=== PATIENT | male | born 1980 | race African-American/Black ===

== ENCOUNTER 2019-07-14 18:17 | Inpatient (IN) | payer OTHER ==
[2019-07-14 18:43] VITALS: BMI 24.0
--- NOTE | 2019-07-14 20:40 | HP ---
"CIWA Score - Admission Criteria [facility] Guidelines: Admission for Medically Managed Detox: Requires at least one of the followin. CIWA greater than 12 2. Seizures within the past 24 hours 3. Delirium tremens within the past 24 hours 4. Hallucinations within the past 24 hours 5. Acute intervention needed for co occurring medical disorder 6. Acute intervention needed for co occurring psychiatric disorder 7. Severe withdrawal that cannot be handled at a lower level of care (continued vomiting, continued diarrhea, abnormal vital signs) requiring intravenous medication and/or fluids 8. Admission ROS [facility] - HPI Chief Complaint: Here to get myself straight. Allergies/Adverse Reactions: Allergies Allergy/AdvReac Type Severity Reaction Status Date / Time lactose AdvReac Intermediate Verified 07/14/19 18:31 History of Present Illness: 39 yo presents w/ hx poly-substance use disorder. Released from incarceration after 3 days, and presents for admission to rehab. CASIMIRO: 0.0 Utox: + PHILLIP/THC States Court Mandated into treatment for cocaine, alcohol and methamphetamine. Alcohol use began at age 17. Currently drinking 12 beers - 12 oz/daily x 6 years. Last use 3 days ago. Cocaine use began at age 19. Currently $80 daily x 10 years. Last use 3 days ago. Methamphetamine use began at age 19. Current use daily since age 29's. Last use 3 days ago. Marijuana use began at age 15. Continues use since age 15. Last use 3 days ago. Nicotine use since age 10. Currently smokes 1 PPD. Denies hx seizures, blackouts, overdoses. PMHx: HTN - does not take meds; MHHx: Depression. Some anxiety. Denies other MH issues. Denies thoughts of harming self or others. SHx: Homeless. Unemployed. Mandated into treatment. Search Terms: [place], 1980 Search Date: 07/14/2019 08:33:24 PM The Drug Utilization Report below displays all of the controlled substance prescriptions, if any, that your patient has filled in the last twelve months. The information displayed on this report is compiled from pharmacy submissions to the Department, and accurately reflects the information as submitted by the pharmacies. This report was requested by: Fernanda Cochran | Reference #: [id number] There are no results for the search terms that you entered. Search Terms: [place], 1980 Search Date: 07/14/2019 08:33:56 PM States Searched: [place], [place], [place], [place], [place], [place], [place], [place] The Drug Utilization Report below displays the controlled substance prescriptions, if any, that were dispensed in the indicated state(s). The information displayed on this report is compiled from requests submitted to other states' PMPs, and accurately reflects the information as returned by them. Blank wheeler indicate data not provided by other state. This report was requested by: Fernanda Cochran | Reference #: [id number] There are no results for the search terms that you entered. Exam Limitations: No Limitations - Ebola screening Have you traveled outside of the country in the last 21 days: No (N) Have you had contact with anyone from an Ebola affected area: No Have you been sick,other than usual withdrawal symptoms: No Do you have a fever: No - Review of Systems Constitutional: Chills EENT: reports: Nose Congestion Respiratory: reports: No Symptoms reported Cardiac: reports: No Symptoms Reported GI: reports: Indigestion (Acid reflux) : reports: No Symptoms Reported Musculoskeletal: reports: Back Pain (Back dull pain - stiffness x 3 days - positional) Integumentary: reports: No Symptoms Reported Neuro: reports: Headache (Slight frontal achy headache unrelated to injyry), Tingling (Pin and needles in (L) wrist r/t injury) Endocrine: reports: Increased Thirst Hematology: reports: Anemia (Low iron- not taking meds) Psychiatric: reports: Mood/Affect Appropiate, Orientated x3 (Unsure of exact date - missed by 2 days. Knows month and year.), Agitated Patient History - PPD History Previous Implant?: Yes Documented Results: Negative w/proof Implanted On Prior [facility] Admission?: No PPD to be Administered?: Yes - Smoking Cessation Smoking history: Current every day smoker Have you smoked in the past 12 months: Yes Aproximately how many cigarettes per day: 20 Hx Chewing Tobacco Use: No Initiated information on smoking cessation: Yes 'Breaking Loose' booklet given: 07/14/19 - Substance & Tx. History Hx Alcohol Use: Yes Hx Substance Use: Yes Substance Use Type: Alcohol, Cocaine, Marijuana, Tranquilizers (Methamphetamine) Hx Substance Use Treatment: Yes (detox, rehab) - Substances abused Methamphetamine Substance route: Smoking Frequency: 3-6 times per week Amount used: $200 Age of first use: 29 Date of last use: 06/14/19 Cocaine Substance route: Smoking Frequency: Daily Amount used: $80 Age of first use: 19 Date of last use: 07/12/19 Alcohol Substance route: Oral Frequency: Daily Amount used: 2 six packs 12 oz Age of first use: 17 Date of last use: 07/11/19 Marijuana/Hashish Substance route: Smoking Frequency: Daily Amount used: $25 Age of first use: 15 Date of last use: 07/11/19 Admission Physical Exam S - Vital Signs Vital Signs: Vital Signs - 24 hr 07/14/19 18:25 Temperature 97.4 F L Pulse Rate 70 Respiratory 16 Rate Blood Pressure 139/85 - Physical General Appearance: Yes: Nourished, Anxious HEENTM: Yes: EOMI (Jerking movement of eyes upon lateral gaze), Hearing grossly Normal, Normocephalic, Normal Voice, EBER, Pharynx Normal, Rhinorrhea (Clear nasal discharge. Enlarged nasal turbinates w/o erythema or lesions.) Respiratory: Yes: Lungs Clear (Pulse Ox = 99 %), Normal Breath Sounds, No Respiratory Distress Neck: Yes: No masses,lesions,Nodules, Supple Breast: Yes: Breast Exam Deferred Cardiology: Yes: Regular Rhythm, Regular Rate, S1, S2 Abdominal: Yes: Normal Bowel Sounds, Non Tender, Flat, Soft Genitourinary: Yes: Within Normal Limits Back: Yes: Normal Inspection Musculoskeletal: Yes: full range of Motion, Gait Steady Extremities: Yes: Normal Capillary Refill, Other (Edema (L) leg ankle (26 cm) to mid calf (30 cm). (R) leg ankle (24.5 cm) to mid calf (29.5 cm).) Neurological: Yes: manager application II-XII NML intact (Jerking movement of eyes upon lateral gaze), Alert, Motor Strength 5/5 Integumentary: Yes: Normal Color, Dry (Very dry skin), Warm, Other (Cracked skin on feet and between toes.) Lymphatic: Yes: Within Normal Limits - Diagnostic (1) Alcohol use disorder, moderate, in early remission Current Visit: Yes Status: Acute (2) Cocaine use disorder, moderate, in early remission Current Visit: Yes Status: Chronic (3) Cannabis use disorder, moderate, in early remission Current Visit: Yes Status: Chronic (4) Methamphetamine use disorder, moderate, in early remission Current Visit: Yes Status: Chronic (5) Nicotine dependence, unspecified, uncomplicated Current Visit: Yes Status: Chronic Qualifiers: Nicotine product type: cigarettes Qualified Code(s): F17.210 - Nicotine dependence, cigarettes, uncomplicated (6) HTN (hypertension) Current Visit: Yes Status: Chronic Qualifiers: Hypertension type: unspecified Qualified Code(s): I10 - Essential (primary ) hypertension Comment: Not on HTN meds (7) Unspecified nystagmus Current Visit: Yes Status: Acute (8) Tinea pedis Current Visit: Yes Status: Chronic Qualifiers: Laterality: bilateral Qualified Code(s): B35.3 - Tinea pedis (9) History of gastroesophageal reflux (GERD) Current Visit: Yes Status: Chronic (10) Edema, unspecified Current Visit: Yes Status: Chronic Qualifiers: Edema type: unspecified Qualified Code(s): R60.9 - Edema, unspecified Comment: LLE Cleared for Admission [facility] - Detox or Rehab Claeared for Rehab Admission: Yes Inpatient Rehab Admission - Rehab Decision to Admit Inpatient rehab admission?: Yes - Initial Determination Are CD services needed?: Yes Free of communicable disease: Yes Not in need of hospitalization: Yes - Rehab Admission Criteria Previous failed treatment: Yes Poor recovery environment: Yes Comorbidities: Yes Lacks judgement: No Patient is meeting Inpatient Rehab admission criteria:: Yes"
[2019-07-14] MEDS ORDERED: hydrOXYzine PAMOATE 25 MG CAPSULE (FP) PO PRN (21:11)
[2019-07-14] MEDS ORDERED: NICOTINE POLACRILEX 2 MG GUM BUC PRN (21:11)
[2019-07-14] MEDS ORDERED: MAGNESIUM HYDROX 2400MG/30ML ORAL SUSPENSION 30 ML CUP PO PRN (21:11)
[2019-07-14] MEDS ORDERED: guaiFENesin 200 MG/10 ML 10 ML UNIT-DOSE CUPS PO PRN (21:11)
[2019-07-14] MEDS ORDERED: MAG HYDROX/AL HYDROX/SIMETH 30 ML UNIT-DOSE CUP PO PRN (21:11)
[2019-07-14] MEDS ORDERED: P-EPHED 60MG/TRIPROLIDI 2.5MG TABLET PO PRN (21:11)
[2019-07-14] MEDS ORDERED: ACETAMINOPHEN 325 MG TABLET (FP) PO PRN (21:11)
[2019-07-14] MEDS ORDERED: LOPERAMIDE HCL 2 MG CAPSULE PO PRN (21:11)
[2019-07-14] MEDS ORDERED: MAGNESIUM CITRATE 300 ML BOTTLE PO PRN (21:11)
[2019-07-14] MEDS ORDERED: MENTHOL/PHENOL 1 EACH UD MM PRN (21:11)
[2019-07-14] MEDS: THIAMINE HCL 100 MG TABLET (FP) PO SCH (23:28)
[2019-07-14] MEDS: TOLNAFTATE 1% CREAM 15 GM TUBE TP SCH (23:32)
[2019-07-15] MEDS: PRENATAL VITAMINS W/ FOLIC ACID TABLET (FP) PO SCH (10:10)
[2019-07-15] MEDS: NICOTINE 21 MG/24 HOURS TOPICAL PATCH TD SCH (10:11)
[2019-07-15] MEDS: TOLNAFTATE 1% CREAM 15 GM TUBE TP SCH ×2 (10:11→21:10)
--- NOTE | 2019-07-15 11:07 | EKG ---
Test Reason : Blood Pressure : / mmHG Vent. Rate : 080 BPM Atrial Rate : 080 BPM P-R Int : 136 ms QRS Dur : 082 ms QT Int : 356 ms P-R-T Axes : 081 086 073 degrees QTc Int : 410 ms NORMAL SINUS RHYTHM NORMAL ECG NO PREVIOUS ECGS AVAILABLE Confirmed by Ramos Mcintyre MD ([id number]) on 07/15/2019 11:06:52 AM Referred By: Confirmed By:Ramos Mcintyre MD
[2019-07-15 11:58] LABS: HEMATOCRIT 43.3 % (35.4-49); HEMOGLOBIN 13.4 GM/dL (11.7-16.9); MCH 23.6 pg (25.7-33.7); MCHC 30.9 g/dl (32.0-35.9); MEAN CELL VOLUME 76.3 fl (80-96); MEAN PLT VOLUME 8.8 fl (7.5-11.1); PLATELET COUNT 260 K/MM3 (134-434); RBC 5.67 M/mm3 (4.00-5.60); RDW 16.5 % (11.9-15.9); WHITE BLOOD COUNT 6.7 K/mm3 (4.0-10.0)
[2019-07-15 12:04] LABS: ALBUMIN 3.4 g/dl (3.4-5.0); BILIRUBIN,TOTAL 0.4 mg/dL (0.2-1); BLOOD UREA NITROGEN 12.2 mg/dL (7-18); CALCIUM 8.9 mg/dL (8.5-10.1); CREATININE 1.1 mg/dL (0.55-1.3); POTASSIUM 4.1 mmol/L (3.5-5.1); TOT PROT 6.2 g/dl (6.4-8.2)
[2019-07-15 17:13] LABS: PH,URINE 8.5 (5.0-8.0); URINE APPEARANCE CLEAR; URINE BILIRUBIN NEGATIVE (NEGATIVE); URINE COLOR YELLOW; URINE GLUCOSE (UA) NEGATIVE (NEGATIVE); URINE KETONE NEGATIVE (NEGATIVE); URINE LEUK ESTERASE NEGATIVE (NEGATIVE); URINE NITRITE NEGATIVE (NEGATIVE); URINE PROTEIN NEGATIVE (NEGATIVE); URINE UROBILINOGEN 0.2 mg/dL (0.2-1.0)
[2019-07-15] MEDS: THIAMINE HCL 100 MG TABLET (FP) PO SCH (21:10)
[2019-07-16] MEDS: PRENATAL VITAMINS W/ FOLIC ACID TABLET (FP) PO SCH (10:44)
[2019-07-16] MEDS: NICOTINE 21 MG/24 HOURS TOPICAL PATCH TD SCH (10:45)
[2019-07-16] MEDS: TOLNAFTATE 1% CREAM 15 GM TUBE TP SCH ×2 (10:45→21:12)
[2019-07-16] MEDS: THIAMINE HCL 100 MG TABLET (FP) PO SCH (21:12)
[2019-07-16] MEDS: MELATONIN 5 MG TABLETS PO PRN (21:12)
[2019-07-17] MEDS: PRENATAL VITAMINS W/ FOLIC ACID TABLET (FP) PO SCH (10:39)
[2019-07-17] MEDS: TOLNAFTATE 1% CREAM 15 GM TUBE TP SCH ×2 (10:40→22:38)
[2019-07-17] MEDS: NICOTINE 21 MG/24 HOURS TOPICAL PATCH TD SCH (10:41)
[2019-07-17] MEDS: THIAMINE HCL 100 MG TABLET (FP) PO SCH (22:38)
[2019-07-18] MEDS: NICOTINE 21 MG/24 HOURS TOPICAL PATCH TD SCH (11:11)
[2019-07-18] MEDS: PRENATAL VITAMINS W/ FOLIC ACID TABLET (FP) PO SCH (11:12)
[2019-07-18] MEDS: TOLNAFTATE 1% CREAM 15 GM TUBE TP SCH ×2 (11:12→21:26)
[2019-07-18] MEDS: THIAMINE HCL 100 MG TABLET (FP) PO SCH (21:26)
[2019-07-19] MEDS: NICOTINE 21 MG/24 HOURS TOPICAL PATCH TD SCH (10:19)
[2019-07-19] MEDS: PRENATAL VITAMINS W/ FOLIC ACID TABLET (FP) PO SCH (10:19)
[2019-07-19] MEDS: TOLNAFTATE 1% CREAM 15 GM TUBE TP SCH ×2 (10:19→21:17)
--- NOTE | 2019-07-19 10:43 | PN ---
[facility] Progress Note Note: Vital Signs Temperature 98.3 F 07/19/19 07:13 Pulse Rate 82 07/19/19 07:13 Respiratory Rate 18 07/19/19 07:13 Blood Pressure 125/73 07/19/19 07:13 O2 Sat by Pulse Oximetry (%) Laboratory Last Values WBC 6.7 K/mm3 (4.0-10.0) 07/15/19 08:00 RBC 5.67 M/mm3 (4.00-5.60) H 07/15/19 08:00 Hgb 13.4 GM/dL (11.7-16.9) 07/15/19 08:00 Hct 43.3 % (35.4-49) 07/15/19 08:00 MCV 76.3 fl (80-96) L 07/15/19 08:00 MCH 23.6 pg (25.7-33.7) L 07/15/19 08:00 MCHC 30.9 g/dl (32.0-35.9) L 07/15/19 08:00 RDW 16.5 % (11.9-15.9) H 07/15/19 08:00 Plt Count 260 K/MM3 (134-434) 07/15/19 08:00 MPV 8.8 fl (7.5-11.1) 07/15/19 08:00 Sodium 141 mmol/L (136-145) 07/15/19 08:00 Potassium 4.1 mmol/L (3.5-5.1) 07/15/19 08:00 Chloride 108 mmol/L (98-107) H 07/15/19 08:00 Carbon Dioxide 29 mmol/L (21-32) 07/15/19 08:00 Anion Gap 4 MMOL/L (8-16) L 07/15/19 08:00 BUN 12.2 mg/dL (7-18) 07/15/19 08:00 Creatinine 1.1 mg/dL (0.55-1.3) 07/15/19 08:00 Est GFR (CKD-EPI)AfAm 96.81 07/15/19 08:00 Est GFR (CKD-EPI)NonAf 83.53 07/15/19 08:00 Random Glucose 84 mg/dL (74-106) 07/15/19 08:00 Calcium 8.9 mg/dL (8.5-10.1) 07/15/19 08:00 Total Bilirubin 0.4 mg/dL (0.2-1) 07/15/19 08:00 AST 9 U/L (15-37) L 07/15/19 08:00 ALT 21 U/L (13-61) 07/15/19 08:00 Alkaline Phosphatase 76 U/L (45-117) 07/15/19 08:00 Total Protein 6.2 g/dl (6.4-8.2) L 07/15/19 08:00 Albumin 3.4 g/dl (3.4-5.0) 07/15/19 08:00 Urine Color Yellow 07/15/19 13:30 Urine Appearance Clear 07/15/19 13:30 Urine pH 8.5 (5.0-8.0) H 07/15/19 13:30 Ur Specific [place] 1.014 (1.010-1.035) 07/15/19 13:30 Urine Protein Negative (NEGATIVE) 07/15/19 13:30 Urine Glucose (UA) Negative (NEGATIVE) 07/15/19 13:30 Urine Ketones Negative (NEGATIVE) 07/15/19 13:30 Urine Blood Negative (NEGATIVE) 07/15/19 13:30 Urine Nitrite Negative (NEGATIVE) 07/15/19 13:30 Urine Bilirubin Negative (NEGATIVE) 07/15/19 13:30 Urine Urobilinogen 0.2 mg/dL (0.2-1.0) 07/15/19 13:30 Ur Leukocyte Esterase Negative (NEGATIVE) 07/15/19 13:30 RPR Titer Nonreactive (NONREACTIVE) 07/15/19 08:00 HIV 1&2 Antibody Screen Negative 07/15/19 08:00 HIV P24 Antigen Negative 07/15/19 08:00 labs reviewed follow up with PCP upon discharge continue to monitor
[2019-07-19] MEDS: THIAMINE HCL 100 MG TABLET (FP) PO SCH (21:17)
[2019-07-20] MEDS: NICOTINE 21 MG/24 HOURS TOPICAL PATCH TD SCH (09:46)
[2019-07-20] MEDS: PRENATAL VITAMINS W/ FOLIC ACID TABLET (FP) PO SCH (09:46)
[2019-07-20] MEDS: TOLNAFTATE 1% CREAM 15 GM TUBE TP SCH ×2 (09:46→21:26)
[2019-07-20] MEDS: THIAMINE HCL 100 MG TABLET (FP) PO SCH (21:27)
[2019-07-21] MEDS: NICOTINE 21 MG/24 HOURS TOPICAL PATCH TD SCH (10:39)
[2019-07-21] MEDS: PRENATAL VITAMINS W/ FOLIC ACID TABLET (FP) PO SCH (10:39)
[2019-07-21] MEDS: TOLNAFTATE 1% CREAM 15 GM TUBE TP SCH ×2 (10:40→21:22)
[2019-07-21] MEDS: THIAMINE HCL 100 MG TABLET (FP) PO SCH (21:22)
[2019-07-22] MEDS: NICOTINE 21 MG/24 HOURS TOPICAL PATCH TD SCH (10:32)
[2019-07-22] MEDS: PRENATAL VITAMINS W/ FOLIC ACID TABLET (FP) PO SCH (10:33)
[2019-07-22] MEDS: TOLNAFTATE 1% CREAM 15 GM TUBE TP SCH ×2 (10:33→21:20)
[2019-07-22] MEDS ORDERED: HYDROCORTISONE 1% TOPICAL CREAM 30 GM TUBE TP PRN (12:32)
[2019-07-22] MEDS: THIAMINE HCL 100 MG TABLET (FP) PO SCH (21:20)
[2019-07-23] MEDS: NICOTINE 21 MG/24 HOURS TOPICAL PATCH TD SCH (10:14)
[2019-07-23] MEDS: PRENATAL VITAMINS W/ FOLIC ACID TABLET (FP) PO SCH (10:14)
[2019-07-23] MEDS: TOLNAFTATE 1% CREAM 15 GM TUBE TP SCH ×2 (10:14→21:21)
[2019-07-23] MEDS: THIAMINE HCL 100 MG TABLET (FP) PO SCH (21:21)
[2019-07-24] MEDS: TOLNAFTATE 1% CREAM 15 GM TUBE TP SCH ×2 (10:20→21:23)
[2019-07-24] MEDS: NICOTINE 21 MG/24 HOURS TOPICAL PATCH TD SCH (10:20)
[2019-07-24] MEDS: PRENATAL VITAMINS W/ FOLIC ACID TABLET (FP) PO SCH (10:20)
[2019-07-24] MEDS: THIAMINE HCL 100 MG TABLET (FP) PO SCH (21:23)
[2019-07-25] MEDS: PRENATAL VITAMINS W/ FOLIC ACID TABLET (FP) PO SCH (10:24)
[2019-07-25] MEDS: TOLNAFTATE 1% CREAM 15 GM TUBE TP SCH ×2 (10:24→21:29)
[2019-07-25] MEDS: NICOTINE 21 MG/24 HOURS TOPICAL PATCH TD SCH (10:24)
[2019-07-25] MEDS: THIAMINE HCL 100 MG TABLET (FP) PO SCH (21:28)
[2019-07-26] MEDS: TOLNAFTATE 1% CREAM 15 GM TUBE TP SCH ×2 (11:37→21:20)
[2019-07-26] MEDS: PRENATAL VITAMINS W/ FOLIC ACID TABLET (FP) PO SCH (11:37)
[2019-07-26] MEDS: NICOTINE 21 MG/24 HOURS TOPICAL PATCH TD SCH (11:37)
[2019-07-26] MEDS: THIAMINE HCL 100 MG TABLET (FP) PO SCH (21:19)
[2019-07-27] MEDS: NICOTINE 21 MG/24 HOURS TOPICAL PATCH TD SCH (11:07)
[2019-07-27] MEDS: TOLNAFTATE 1% CREAM 15 GM TUBE TP SCH ×2 (11:07→21:48)
[2019-07-27] MEDS: PRENATAL VITAMINS W/ FOLIC ACID TABLET (FP) PO SCH (11:07)
[2019-07-27] MEDS: THIAMINE HCL 100 MG TABLET (FP) PO SCH (21:48)
[2019-07-28] MEDS: NICOTINE 21 MG/24 HOURS TOPICAL PATCH TD SCH (10:13)
[2019-07-28] MEDS: TOLNAFTATE 1% CREAM 15 GM TUBE TP SCH ×2 (10:13→21:25)
[2019-07-28] MEDS: PRENATAL VITAMINS W/ FOLIC ACID TABLET (FP) PO SCH (10:13)
[2019-07-28] MEDS: COLLOIDAL OATMEAL 1 BAR EACH TP PRN (10:14)
[2019-07-28] MEDS: THIAMINE HCL 100 MG TABLET (FP) PO SCH (21:24)
[2019-07-29] MEDS: TOLNAFTATE 1% CREAM 15 GM TUBE TP SCH ×2 (10:47→21:20)
[2019-07-29] MEDS: NICOTINE 21 MG/24 HOURS TOPICAL PATCH TD SCH (10:47)
[2019-07-29] MEDS: PRENATAL VITAMINS W/ FOLIC ACID TABLET (FP) PO SCH (10:47)
[2019-07-29] MEDS: IBUPROFEN 400 MG TABLET (FP) PO PRN ×2 (10:48→21:17)
[2019-07-29] MEDS: THIAMINE HCL 100 MG TABLET (FP) PO SCH (21:17)
[2019-07-30] MEDS: MELATONIN 5 MG TABLETS PO PRN (01:08)
[2019-07-30] MEDS: TOLNAFTATE 1% CREAM 15 GM TUBE TP SCH ×2 (10:22→21:21)
[2019-07-30] MEDS: PRENATAL VITAMINS W/ FOLIC ACID TABLET (FP) PO SCH (10:22)
[2019-07-30] MEDS: NICOTINE 21 MG/24 HOURS TOPICAL PATCH TD SCH (10:22)
[2019-07-30] MEDS: IBUPROFEN 400 MG TABLET (FP) PO PRN (10:23)
[2019-07-30] MEDS: THIAMINE HCL 100 MG TABLET (FP) PO SCH (21:20)
[2019-07-31] MEDS: IBUPROFEN 400 MG TABLET (FP) PO PRN (06:28)
[2019-07-31] MEDS: PRENATAL VITAMINS W/ FOLIC ACID TABLET (FP) PO SCH (10:40)
[2019-07-31] MEDS: NICOTINE 21 MG/24 HOURS TOPICAL PATCH TD SCH (10:40)
[2019-07-31] MEDS: TOLNAFTATE 1% CREAM 15 GM TUBE TP SCH ×2 (10:41→21:33)
[2019-07-31] MEDS: THIAMINE HCL 100 MG TABLET (FP) PO SCH (21:32)
[2019-08-01] MEDS: TOLNAFTATE 1% CREAM 15 GM TUBE TP SCH ×2 (12:10→21:35)
[2019-08-01] MEDS: PRENATAL VITAMINS W/ FOLIC ACID TABLET (FP) PO SCH (12:10)
[2019-08-01] MEDS: NICOTINE 21 MG/24 HOURS TOPICAL PATCH TD SCH (12:10)
[2019-08-01] MEDS: THIAMINE HCL 100 MG TABLET (FP) PO SCH (21:35)
[2019-08-02] MEDS: NICOTINE 21 MG/24 HOURS TOPICAL PATCH TD SCH (10:18)
[2019-08-02] MEDS: PRENATAL VITAMINS W/ FOLIC ACID TABLET (FP) PO SCH (10:18)
[2019-08-02] MEDS: TOLNAFTATE 1% CREAM 15 GM TUBE TP SCH ×2 (10:18→21:20)
[2019-08-02] MEDS: THIAMINE HCL 100 MG TABLET (FP) PO SCH (21:19)
[2019-08-02] MEDS: IBUPROFEN 400 MG TABLET (FP) PO PRN (21:19)
[2019-08-03] MEDS: TOLNAFTATE 1% CREAM 15 GM TUBE TP SCH ×2 (11:41→21:21)
[2019-08-03] MEDS: PRENATAL VITAMINS W/ FOLIC ACID TABLET (FP) PO SCH (11:41)
[2019-08-03] MEDS: NICOTINE 21 MG/24 HOURS TOPICAL PATCH TD SCH (11:41)
[2019-08-03] MEDS: THIAMINE HCL 100 MG TABLET (FP) PO SCH (21:21)
[2019-08-04] MEDS: COLLOIDAL OATMEAL 1 BAR EACH TP PRN (06:36)
[2019-08-04] MEDS: PRENATAL VITAMINS W/ FOLIC ACID TABLET (FP) PO SCH (10:41)
[2019-08-04] MEDS: NICOTINE 21 MG/24 HOURS TOPICAL PATCH TD SCH (10:41)
[2019-08-04] MEDS: TOLNAFTATE 1% CREAM 15 GM TUBE TP SCH ×2 (10:41→21:26)
[2019-08-04] MEDS: THIAMINE HCL 100 MG TABLET (FP) PO SCH (21:22)
[2019-08-05] MEDS: NICOTINE 21 MG/24 HOURS TOPICAL PATCH TD SCH (10:14)
[2019-08-05] MEDS: PRENATAL VITAMINS W/ FOLIC ACID TABLET (FP) PO SCH (10:14)
[2019-08-05] MEDS: TOLNAFTATE 1% CREAM 15 GM TUBE TP SCH ×2 (10:14→22:40)
[2019-08-05] MEDS: THIAMINE HCL 100 MG TABLET (FP) PO SCH (22:41)
[2019-08-06] MEDS: PRENATAL VITAMINS W/ FOLIC ACID TABLET (FP) PO SCH (11:52)
[2019-08-06] MEDS: NICOTINE 21 MG/24 HOURS TOPICAL PATCH TD SCH (11:52)
[2019-08-06] MEDS: TOLNAFTATE 1% CREAM 15 GM TUBE TP SCH ×2 (11:52→21:58)
[2019-08-06] MEDS: THIAMINE HCL 100 MG TABLET (FP) PO SCH (21:59)
[2019-08-07] MEDS: TOLNAFTATE 1% CREAM 15 GM TUBE TP SCH ×2 (10:49→21:20)
[2019-08-07] MEDS: PRENATAL VITAMINS W/ FOLIC ACID TABLET (FP) PO SCH (10:49)
[2019-08-07] MEDS: NICOTINE 21 MG/24 HOURS TOPICAL PATCH TD SCH (10:49)
[2019-08-07] MEDS: THIAMINE HCL 100 MG TABLET (FP) PO SCH (21:20)
[2019-08-07] MEDS: IBUPROFEN 400 MG TABLET (FP) PO PRN (21:21)
[2019-08-08] MEDS: TOLNAFTATE 1% CREAM 15 GM TUBE TP SCH ×2 (11:31→21:19)
[2019-08-08] MEDS: NICOTINE 21 MG/24 HOURS TOPICAL PATCH TD SCH (11:31)
[2019-08-08] MEDS: PRENATAL VITAMINS W/ FOLIC ACID TABLET (FP) PO SCH (11:31)
--- NOTE | 2019-08-08 13:09 | PN ---
[facility] Progress Note Note: Pt is a 39 y/o male admitted to rehab for LEWIS scheduled for discharge on . Pt reports he goes to [facility] for primary care. Pt has been referred to [facility] in [place], [place] for CD aftercare /Mental Health clinic. Vital Signs - 24 hr 08/08/19 08/08/19 08/08/19 00:30 03:30 07:00 Temperature 98.1 F Pulse Rate 76 Respiratory 18 18 18 Rate Blood Pressure 106/80 Laboratory Tests 07/15/19 07/15/19 07/15/19 08:00 08:00 08:00 WBC 6.7 RBC 5.67 H Hgb 13.4 Hct 43.3 MCV 76.3 L MCH 23.6 L MCHC 30.9 L RDW 16.5 H Plt Count 260 MPV 8.8 Sodium 141 Potassium 4.1 Chloride 108 H Carbon Dioxide 29 Anion Gap 4 L BUN 12.2 Creatinine 1.1 Est GFR (CKD-EPI)AfAm 96.81 Est GFR (CKD-EPI)NonAf 83.53 Random Glucose 84 Calcium 8.9 Total Bilirubin 0.4 AST 9 L ALT 21 Alkaline Phosphatase 76 Total Protein 6.2 L Albumin 3.4 Urine Color Urine Appearance Urine pH Ur Specific [place] Urine Protein Urine Glucose (UA) Urine Ketones Urine Blood Urine Nitrite Urine Bilirubin Urine Urobilinogen Ur Leukocyte Esterase RPR Titer Nonreactive HIV 1&2 Antibody Screen HIV P24 Antigen 07/15/19 07/15/19 08:00 13:30 WBC RBC Hgb Hct MCV MCH MCHC RDW Plt Count MPV Sodium Potassium Chloride Carbon Dioxide Anion Gap BUN Creatinine Est GFR (CKD-EPI)AfAm Est GFR (CKD-EPI)NonAf Random Glucose Calcium Total Bilirubin AST ALT Alkaline Phosphatase Total Protein Albumin Urine Color Yellow Urine Appearance Clear Urine pH 8.5 H Ur Specific [place] 1.014 Urine Protein Negative Urine Glucose (UA) Negative Urine Ketones Negative Urine Blood Negative Urine Nitrite Negative Urine Bilirubin Negative Urine Urobilinogen 0.2 Ur Leukocyte Esterase Negative RPR Titer HIV 1&2 Antibody Screen Negative HIV P24 Antigen Negative Alert o x3 nad oob ambulating with steady gait cardiac:s1 s2,rrr lungs;cta,giorgio. abdomen:soft,+bs,nt,nd extremities/skin"no edema,full ROM,skin intact. A/P Medically stable D/C pt if stable on 08/11/19.
[2019-08-08] MEDS: THIAMINE HCL 100 MG TABLET (FP) PO SCH (21:19)
[2019-08-08] MEDS: MELATONIN 5 MG TABLETS PO PRN (21:19)
[2019-08-09] MEDS: NICOTINE 21 MG/24 HOURS TOPICAL PATCH TD SCH (10:29)
[2019-08-09] MEDS: TOLNAFTATE 1% CREAM 15 GM TUBE TP SCH ×2 (10:29→21:23)
[2019-08-09] MEDS: PRENATAL VITAMINS W/ FOLIC ACID TABLET (FP) PO SCH (10:29)
[2019-08-09] MEDS: THIAMINE HCL 100 MG TABLET (FP) PO SCH (21:22)
[2019-08-09] MEDS: MELATONIN 5 MG TABLETS PO PRN (21:22)
[2019-08-10] MEDS: TOLNAFTATE 1% CREAM 15 GM TUBE TP SCH ×2 (10:42→21:24)
[2019-08-10] MEDS: PRENATAL VITAMINS W/ FOLIC ACID TABLET (FP) PO SCH (10:42)
[2019-08-10] MEDS: NICOTINE 21 MG/24 HOURS TOPICAL PATCH TD SCH (10:42)
[2019-08-10] MEDS: MELATONIN 5 MG TABLETS PO PRN (21:21)
[2019-08-10] MEDS: THIAMINE HCL 100 MG TABLET (FP) PO SCH (21:21)
[2019-08-10] MEDS: COLLOIDAL OATMEAL 1 BAR EACH TP PRN (21:22)
[2019-08-11 07:16] VITALS: BP 113/85; PULSE 77; TEMP 97.1
--- NOTE | 2019-08-11 09:31 | DS ---
[facility] - [facility] Admission Date: 07/14/19 Discharge Date: 08/11/19 - History Present History: Alcohol dependence, Cannabis dependence, Cocaine dependence Additional Comments: Pt is a 39 y/o male admitted to rehab for LEWIS scheduled for discharge on . Pt reports he goes to [facility] for primary care. Pt has been referred to [facility] in [place], [place] for CD aftercare /Mental Health clinic. Pertinent Past History: HTN(no med) GERD(no med) - Discharge Physical Exam Vital Signs: Vital Signs Temperature 97.1 F L 08/11/19 07:15 Pulse Rate 77 08/11/19 07:15 Respiratory Rate 18 08/11/19 07:15 Blood Pressure 113/85 08/11/19 07:15 O2 Sat by Pulse Oximetry (%) Alert o x 3;denies s/h/i nad oob ambulating with steady gait cardiac:s1 s2,rrr lungs:cta,giorgio. abdomen:+bs,soft,nt,nd extremities/skin:no edema,full ROM;skin intact Pertinent Admission Physical Exam Findings: Laboratory Tests 07/15/19 07/15/19 07/15/19 08:00 08:00 08:00 WBC 6.7 RBC 5.67 H Hgb 13.4 Hct 43.3 MCV 76.3 L MCH 23.6 L MCHC 30.9 L RDW 16.5 H Plt Count 260 MPV 8.8 Sodium 141 Potassium 4.1 Chloride 108 H Carbon Dioxide 29 Anion Gap 4 L BUN 12.2 Creatinine 1.1 Est GFR (CKD-EPI)AfAm 96.81 Est GFR (CKD-EPI)NonAf 83.53 Random Glucose 84 Calcium 8.9 Total Bilirubin 0.4 AST 9 L ALT 21 Alkaline Phosphatase 76 Total Protein 6.2 L Albumin 3.4 Urine Color Urine Appearance Urine pH Ur Specific [place] Urine Protein Urine Glucose (UA) Urine Ketones Urine Blood Urine Nitrite Urine Bilirubin Urine Urobilinogen Ur Leukocyte Esterase RPR Titer Nonreactive HIV 1&2 Antibody Screen HIV P24 Antigen 07/15/19 07/15/19 08:00 13:30 WBC RBC Hgb Hct MCV MCH MCHC RDW Plt Count MPV Sodium Potassium Chloride Carbon Dioxide Anion Gap BUN Creatinine Est GFR (CKD-EPI)AfAm Est GFR (CKD-EPI)NonAf Random Glucose Calcium Total Bilirubin AST ALT Alkaline Phosphatase Total Protein Albumin Urine Color Yellow Urine Appearance Clear Urine pH 8.5 H Ur Specific [place] 1.014 Urine Protein Negative Urine Glucose (UA) Negative Urine Ketones Negative Urine Blood Negative Urine Nitrite Negative Urine Bilirubin Negative Urine Urobilinogen 0.2 Ur Leukocyte Esterase Negative RPR Titer HIV 1&2 Antibody Screen Negative HIV P24 Antigen Negative - Treatment Discharge Condition: Discharge condition good Hospital Course: Rehabilitated safely and responded well CD aftercare referral accepted - Medication Discharge Medications: Ambulatory Orders NK [No Known Home Medication] 07/14/19 - Medication-Assisted Treatment (MAT) Medication-Assisted Treatment (MAT): No - Discharge Instructions Diet, activity, other medical instructions: Diet:Regular Activity: oob ad frances Other medical instructions:follow up with primary care within 1-2 weeks after discharge. Follow up with CD aftercare recommendations as scheduled. - Diagnosis (1) Alcohol use disorder, moderate, in early remission Status: Chronic (2) Cocaine use disorder, moderate, in early remission Status: Chronic (3) Cannabis use disorder, moderate, in early remission Status: Chronic (4) Methamphetamine use disorder, moderate, in early remission Status: Chronic (5) Nicotine dependence, unspecified, uncomplicated Status: Chronic Qualifiers: Nicotine product type: cigarettes Qualified Code(s): F17.210 - Nicotine dependence, cigarettes, uncomplicated (6) HTN (hypertension) Status: Chronic Qualifiers: Hypertension type: essential hypertension Qualified Code(s): I10 - Essential (primary) hypertension (7) History of gastroesophageal reflux (GERD) Status: Chronic (8) Tinea pedis Status: Chronic Qualifiers: Laterality: bilateral Qualified Code(s): B35.3 - Tinea pedis - Follow-up Referral Minutes to complete discharge: 20 - AMA Did Patient Leave Against Medical Advice: No
== END 2019-08-11 09:00 | disposition home or self-care (01) | DRG 772 ==
LOC: YASAS 18:17 → Y5N 22:04
PROVIDERS: ADMIT Neuromusculoskeletal Medicine & OMM; ATTEND Neuromusculoskeletal Medicine & OMM
PROC: HZ42ZZZ Group Counseling for Substance Abuse Treatment, Cognitive-Behavioral (ICD-10-PCS; principal; 2019-07-14)
DX: F10.20 Alcohol dependence, uncomplicated (principal); F14.20 Cocaine dependence, uncomplicated; F15.20 Other stimulant dependence, uncomplicated; F12.20 Cannabis dependence, uncomplicated; F17.200 Nicotine dependence, unspecified, uncomplicated; I10 Essential (primary) hypertension; F32.9 Major depressive disorder, single episode, unspecified; F41.8 Other specified anxiety disorders; B35.3 Tinea pedis; H55.00 Unspecified nystagmus; R60.9 Edema, unspecified; K21.9 Gastro-esophageal reflux disease without esophagitis; Z86.69 Personal history of other diseases of the nervous system and sense organs; Z59.0 Homelessness
CPT/HCPCS: 36415; 80053; 81003; 85027; 86593; 87389; 93005; 93010